=== PATIENT | female | born 1960 | race Caucasian/White ===

== ENCOUNTER 2025-03-01 10:53 | Day surgery (SDC) | payer MEDICARE, BC ==
--- NOTE | 2025-03-01 08:46 | P.GSHP ---
History of Present Illness H&P Date: 03/01/25 CHIEF COMPLAINT: Dysphagia and colon screen HISTORY OF PRESENT ILLNESS: The patient is a 64-year-old female who presents with dysphagia, gastroesophageal reflux disease and need for colon screen. Upper and lower endoscopy were offered for further evaluation and management. PAST MEDICAL HISTORY: Please see list. PAST SURGICAL HISTORY: Please see list. MEDICATIONS: Please see list. ALLERGIES: Please see list. SOCIAL HISTORY: No illicit drug use FAMILY HISTORY: No reports of Crohn disease or ulcerative colitis. REVIEW OF ORGAN SYSTEMS: CONSTITUTIONAL: No reports of fevers or chills. GI: Denies any blood in stools or constipation. PHYSICAL EXAM: VITAL SIGNS: Stable GENERAL: Well-developed pleasant in no acute distress. HEENT: No scleral icterus. Extraocular movements grossly intact. Moist buccal mucosa. NECK: Supple without lymphadenopathy. CHEST: Unlabored respirations. Equal bilateral excursions. CARDIOVASCULAR: Regular rate and rhythm. Distal 2+ pulses. ABDOMEN: Soft, nondistended. MUSCULOSKELETAL: No clubbing, cyanosis, or edema. ASSESSMENT: 1. Dysphagia and gastroesophageal reflux disease 2. Colon screen. PLAN: 1. Recommend proceeding with an upper and lower endoscopy Past Medical History Past Medical History: Cancer, COPD, GERD/Reflux, Osteoarthritis (OA) Additional Past Medical History / Comment(s): BACK PAIN, HX OF PULMONARY BLEBS WITH PNEUMOTHORAX.,hx BLOATING AND NAUSEA - improved. skin cancer on face removed. hx polyps, left shoulder frozen. hx barretts esophagus History of Any Multi-Drug Resistant Organisms: None Reported Past Surgical History: Back Surgery, Cholecystectomy, Hysterectomy, Orthopedic Surgery Additional Past Surgical History / Comment(s): CYST ON BREAST , CYSTOCELE & RECTOCELE, LAPAROSOPIC MAGNO FUNDOPLASTY x2, BUSTER KNEE ARTHROSCOPY, RIGHT LUNG SURGERY FOR BLEBS (1990). back and neck surgery ( cage in neck) colonoscopy and egd Past Anesthesia/Blood Transfusion Reactions: Family History of Problems w/ Anesthesia Additional Past Anesthesia/Blood Transfusion Reaction / Comment(s): SISTER HAS DIFFICULTY WAKING UP POST-OP. Smoking Status: Current every day smoker - Past Family History Sister(s) Family Medical History: No Reported History Father Additional Family Medical History / Comment(s): emphysema Mother Family Medical History: No Reported History Medications and Allergies Home Medications Medication Instructions Recorded Confirmed Type Albuterol Inhaler [Ventolin Hfa 1 puff INHALATION DIRECTED PRN 02/28/25 02/28/25 History Inhaler] Omeprazole 20 mg PO DAILY 02/28/25 02/28/25 History Allergies Allergy/AdvReac Type Severity Reaction Status Date / Time NSAIDS (Non-Steroidal Allergy barretts Verified 02/28/25 08:54 Anti-Inflamma esophagus ondansetron [From Zofran] AdvReac abd pain Verified 02/28/25 08:54
[~2025-03-01 10:53] MED LIST: LACTATED RINGERS 1,000 ML IV SCH
[2025-03-01] MEDS: IV FLUID CONTINUATION 1,000 ML IV ONE (11:24)
[2025-03-01 11:26] VITALS: TEMP 97.2
[2025-03-01 11:37] LABS: Glucose,Whole Blood 88 mg/dL (70-110)
[2025-03-01] MEDS ORDERED: PROPOFOL 10 MG/ML 20 ML VIAL IV ONE (12:29)
[2025-03-01 13:05] VITALS: RESP 16
[2025-03-01 13:16] VITALS: BP 111/48; PULSE 75
--- NOTE | 2025-03-09 10:10 | P.PCN ---
Date of Procedure: 03/01/25 Description of Procedure: PREOPERATIVE DIAGNOSIS: Burnett's esophagus Gastroesophageal reflux disease Unintentional weight loss POSTOPERATIVE DIAGNOSIS: Burnett's esophagus due to severe gastroesophageal reflux disease Diaphragmatic hiatal hernia, recurrent OPERATION: Esophagogastroduodenoscopy with cold forceps biopsies along esophagus, antrum and duodenum SURGEON: Bev Souza MD ANESTHESIA: MAC. INDICATIONS: The patient is a 64-year-old female who presents with dysphagia and reflux disease. Benefits and risks of the procedure were described. Informed consent was obtained. DESCRIPTION: The patient was brought into the endoscopy suite and laid in the left lateral decubitus position. An Olympus gastroscope was passed along the posterior oropharynx down to the distal esophagus where the squamocolumnar junction was encountered at 35 cm from the incisors. The stomach was entered and no bile reflux was found. Additional findings are listed below. Biopsies with cold forceps were obtained of the antrum. The first through third portion of the duodenum was examined. Retroflexion of the scope confirmed Hill grade 3 lower esophageal valve. The squamocolumnar junction demonstrated LA grade D erosive esophagitis. The stomach was desufflated. The patient tolerated the procedure well. FINDINGS: Squamocolumnar junction 35 cm from the incisors. Diaphragmatic hiatus at 40 cm. Hiatal hernia, 5 cm Hill grade 3 lower esophageal valve. LA grade D erosive esophagitis, long segment 5 cm, 35 to 40 cm from the incisors Biopsies obtained of the duodenum. Chronic gastritis with biopsies obtained. RECOMMENDATIONS: Repeat upper endoscopy in 3 years, 2027
--- NOTE | 2025-03-09 10:12 | P.PCN ---
Date of Procedure: 03/01/25 Description of Procedure: PREOPERATIVE DIAGNOSIS: Family history of colon polyps Personal history of colon polyps Colonoscopy screening. POSTOPERATIVE DIAGNOSIS: Colonoscopy screening. OPERATION: Colonoscopy to the cecum, ileocecal valve and appendiceal orifice. SURGEON: Bev Souza MD. ANESTHESIA: MAC. INDICATIONS: The patient is a 64-year-old female who presents for colonoscopy screening. Last colonoscopy over 5 years ago. Benefits and risks were described and informed consent was obtained. DESCRIPTION OF PROCEDURE: The patient had undergone Suprep. The patient had been brought into the operating room and laid in the left lateral decubitus position. After adequate intravenous sedation, the rectum was examined with 2% lidocaine jelly. External hemorrhoids were encountered. The rectal tone was within normal limits. No lesions were palpated in the rectal vault. An Olympus colonoscope was advanced until the cecum, ileocecal valve and appendiceal orifice were clearly viewed. The prep was good. Few scattered diverticulosis was encountered. No colonic polyps were found. No evidence of focal colitis was found. Retroflexion of the scope demonstrated grade 1 internal hemorrhoids without active bleeding or inflammation. The colon was desufflated. The patient had tolerated the procedure well. Withdrawal time was over 6 minutes. FINDINGS: Aronchick preparation quality scale 2+ (1-5) Internal hemorrhoids, grade 4 External prolapsed hemorrhoids, 4 No arteriovenous malformations. No adenomatous polyps. No focal colitis. Few sigmoid diverticulosis Highly redundant sigmoid colon requiring abdominal wall pressure RECOMMENDATIONS: Repeat colonoscopy 2029 Plan - Discharge Summary Discharge Rx Participant: No New Discharge Prescriptions: Continue Albuterol Inhaler [Ventolin Hfa Inhaler] 1 puff INHALATION DIRECTED PRN PRN Reason: sob Omeprazole 20 mg PO DAILY Discharge Medication List Albuterol Inhaler [Ventolin Hfa Inhaler] 1 puff INHALATION DIRECTED PRN 02/28/25 [History] Omeprazole 20 mg PO DAILY 02/28/25 [History] Follow up Appointment(s)/Referral(s): Bev Souza MD [STAFF PHYSICIAN] - 03/21/25 2:00 pm Patient Instructions/Handouts: *Surgery [facility] - (Anesthesia) Discharge Instructions Outpatient Surgery, Burnett Esophagus (DC) Activity/Diet/Wound Care/Special Instructions: Repeat colonoscopy years2029 Discharge Disposition: HOME SELF-CARE
== END 2025-03-01 13:49 | disposition home or self-care (01) ==
LOC: ORWHC2ENDO 10:53
PROVIDERS: ATTEND Surgery Plastic and Reconstructive Surgery
DX: Z12.11 Encounter for screening for malignant neoplasm of colon (principal); K64.3 Fourth degree hemorrhoids; K57.30 Diverticulosis of large intestine without perforation or abscess without bleeding; K22.70 Barrett's esophagus without dysplasia; K21.9 Gastro-esophageal reflux disease without esophagitis; K44.9 Diaphragmatic hernia without obstruction or gangrene; J44.9 Chronic obstructive pulmonary disease, unspecified; Z91.89 Other specified personal risk factors, not elsewhere classified; F17.200 Nicotine dependence, unspecified, uncomplicated; Z79.899 Other long term (current) drug therapy; Z86.0100 Personal history of colon polyps, unspecified; Z83.719 Family history of colon polyps, unspecified; Z88.6 Allergy status to analgesic agent; Z88.8 Allergy status to other drugs, medicaments and biological substances
CPT/HCPCS: 88305; 43239; J2704; G0121; 45378

== ENCOUNTER → 2025-03-31 | Outpatient (CLI) | payer MEDICARE, BC ==
[2025-03-31 13:23] LABS: INR 1.0 (<1.2); Partial Thromboplastin Time 23.1 sec (22.0-30.0); Prothrombin Time 11.1 sec (10.0-12.5)
[2025-03-31 15:16] LABS: Basophils # (A) 0.06 X 10*3/uL (0.00-0.10); Basophils % (A) 0.8 %; Eosinophils # (A) 0.09 X 10*3/uL (0.04-0.35); Eosinophils % (A) 1.1 %; HCT 43.8 % (37.2-46.3); HGB 14.1 g/dL (12.0-15.0); Immature Grans, Automated 0.40 %; Lymphocytes # (A) 1.89 X 10*3/uL (0.90-5.00); Lymphocytes % (A) 24.0 %; MCH 28.5 pg (27.0-32.0); MCHC 32.2 g/dL (32.0-37.0); MCV 88.5 FL (80.0-97.0); Monocytes # (A) 0.54 X 10*3/uL (0.20-1.00); Monocytes % (A) 6.8 %; NRBC Per 100 WBC 0 X 10*3/uL (0.00-0.01); Neutrophils # (A) 5.28 X 10*3/uL (1.80-7.70); Neutrophils % (A) 66.9 %; Platelet Count 258 X 10*3/uL (140-440); RBC 4.95 X 10*6/uL (4.10-5.20); RDW 15.3 % (11.5-14.5); WBC 7.89 X 10*3/uL (4.50-10.00)
[2025-03-31 15:43] LABS: Prealbumin 18.6 mg/dL (18.0-42.0)
[2025-03-31 16:02] LABS: ALT 15 U/L (8-44); AST 18 U/L (13-35); Albumin 4.3 g/dL (3.8-4.9); Albumin/Globulin Ratio 1.65 Ratio (1.60-3.17); Alkaline Phosphatase 72 U/L (41-126); Anion Gap 11.60 mmol/L (4.00-12.00); BUN/Creat Ratio 28.60 Ratio (12.00-20.00); Blood Urea Nitrogen 14.3 mg/dL (9.0-27.0); Calcium 9.7 mg/dL (8.7-10.3); Carbon Dioxide 26.4 mmol/L (21.6-31.8); Chloride 101 mmol/L (96-109); Cholesterol 242.00 mg/dL (0.00-200.00); Ferritin 73.2 ng/mL (10.0-291.0); Globulin 2.6 g/dL (1.6-3.3); Glucose 116 mg/dL (70-110); HDL Cholesterol 76.00 mg/dL (40.00-60.00); Iron 62 UG/DL (50-170); LDL Cholesterol,Calculated 144.6 mg/dL (0.0-131.0); Magnesium 1.7 mg/dL (1.5-2.4); Potassium 4.3 mmol/L (3.5-5.5); Sodium 139 mmol/L (135-145); Total Iron Binding Capacity 316 UG/DL (228-460); Total Protein 6.9 g/dL (6.2-8.2); Triglycerides 107.00 mg/dL (0.00-149.00); VLDL Calculation 21.40 mg/dL (5.00-40.00); Vitamin B12 400.0 pg/mL (200.0-944.0)
[2025-04-03 10:32] LABS: Zinc, Serum 81 ug/dL (60-130)
== END | disposition home or self-care (01) ==
LOC: LABWHC1 12:05
PROVIDERS: ATTEND Surgery Plastic and Reconstructive Surgery
DX: E55.9 Vitamin D deficiency, unspecified (principal); E66.01 Morbid (severe) obesity due to excess calories; E44.1 Mild protein-calorie malnutrition; D50.9 Iron deficiency anemia, unspecified; K74.1 Hepatic sclerosis; T56.894A Toxic effect of other metals, undetermined, initial encounter
CPT/HCPCS: 36415; 80053; 80061; 82525; 82607; 82728; 82746; 83540; 83550; 83735; 83970; 84100; 84134; 84255; 84425; 84443; 84590; 84630; 85025; 85610; 85730